=== PATIENT | female | born 1965 | race Caucasian/White ===

== ENCOUNTER 2025-06-10 08:47 | Emergency (ER) | payer BC ==
[~2025-06-10] VITALS: Ht 162.6 cm; Wt 71.4 kg
[2025-06-10 08:58] VITALS: TEMP 98.2
[2025-06-10] MEDS: normal saline 1000ml 1,000 ML IV ONE (09:31)
[2025-06-10 09:42] LABS: MEAN PLATELET VOLUME 7.7 FL (7.4-10.4); RED CELL DISTRIBUTION WIDTH 13.3 % (11.5-14.5)
[2025-06-10 09:59] LABS: CREATININE 0.95 MG/DL (0.40-0.90); TOTAL CARBON DIOXIDE 20.4 MMOL/L (24-32); eCRCL 54 ML/MIN; eGFR 60 ML/MIN
--- NOTE | 2025-06-10 10:09 | Physician Documentation ---
History of Present Illness ~ Chief Complaint: Overdose Stated Complaint: VOMITING Time Seen by MD: 09:10 Mode of Arrival: POV HPI 59-year-old female who presents with nausea, vomiting, abdominal cramping The patient has been on semaglutide medication previously, but ran out. On , she took 2.5 mg of Wegovy from a friend. Immediately following this, she developed abdominal cramping, nausea and vomiting. She has had severe cramping and nausea since that time. She has not really been able to keep down much food or fluids. She tried Pepto-Bismol with minimal relief. She denies any fevers. No abdominal pain. She has been constipated but no diarrhea. She feels dehydrated. Medication Reconciliation Allergies: Coded Allergies: No Known Allergies (Unverified , 06/10/25) Scheduled Promethazine Hcl (Promethegan), 25 MG RC Q6H PRN N/V Scheduled PRN ONDANSETRON ODT 4mg tablet (Ondansetron Odt), 1 TAB PO Q6H PRN PRN for nausea/vomiting Promethazine HCl (Promethazine HCl), 1 TAB PO Q6H PRN PRN for nausea/vomiting Review of Systems Constitutional: Denies: fever Gastrointestinal: Reports: nausea, vomiting, constipated; Denies: abdominal pain Physical Exam Vital Signs: Temperature: 98.2, Source: Oral, Heart Rate: 84, Respiratory Rate: 19, BP: 134/191, Pulse Oximetry: 100, Weight: 71.400 Oxygen Flow Rate: 2.0 Physical Exam General: This is an anxious appearing middle-aged woman, friend at bedside HEENT: Atraumatic, oropharynx is dry with cracked lips Heart: Regular rate and rhythm, normal-appearing peripheral perfusion Lungs: normal work of breathing, normal oxygen saturation on room air Abdomen: Soft, nondistended, no focal tenderness, no rebound or guarding Neuro: Alert and oriented Psychiatric: Initially anxious and in mild distress, but then later calms and is quite pleasant and cooperative Progress Results/Orders Results/Orders Orders - SHAINA BROWN MD CMP (06/10/25 09:10) Lipase (06/10/25 09:10) Magnesium Sulf-Water 2g/50ml (Magnesium (06/10/25 10:10) Potassium Cl 10meq/100ml Bag (Potassium (06/10/25 10:15) MG (06/10/25 09:33) Completed Orders - SHAINA BROWN MD Cbc/Diff (06/10/25 09:10) Normal Saline 1000ml (0.9% Sodium Chlori (06/10/25 09:10) Prochlorperazine Inj (Compazine Inj) (06/10/25 09:10) Diphenhydramine Inj (Benadryl Inj.) (06/10/25 09:10) Potassium Cl 20meq/100ml Bag (Potassium (06/10/25 10:10) Medications Received in ER Medications (Trade) Dose Ordered Sig/Gennaro Route PRN Reason Start Time Stop Time Status Last Admin Dose Admin Sodium Chloride 1,000 ml @ 1,000 mls/hr ONCE ONCE IV 06/10/25 09:10 06/10/25 10:17 DC 06/10/25 09:31 1,000 MLS/HR (Compazine inj) 10 mg ONCE ONCE IV 06/10/25 09:10 06/10/25 09:11 DC 06/10/25 09:31 10 MG (Benadryl inj.) 12.5 mg ONCE ONCE IV 06/10/25 09:10 06/10/25 09:11 DC 06/10/25 09:31 12.5 MG Magnesium Sulfate 50 ml @ 25 mls/hr ONCE ONCE IV 06/10/25 10:10 06/10/25 12:09 06/10/25 10:38 25 MLS/HR Potassium Chloride 100 ml @ 100 mls/hr Q1H IV 06/10/25 10:15 06/10/25 12:14 06/10/25 10:34 100 MLS/HR Vital Signs 06/10/25 06/10/25 06/10/25 08:58 09:41 09:48 Temp 98.2 Pulse 110 84 Resp 24 19 B/P (MAP) 163/80 134/191 (172) Pulse Ox 99 100 O2 Flow Rate 0 2.0 Laboratory Tests Test 06/10/25 09:16 06/10/25 09:33 Glucometer 130 H White Blood Count 8.1 Red Blood Count 4.58 Hemoglobin 14.9 Hematocrit 42.9 Mean Corpuscular Volume 93.6 Mean Corpuscular Hemoglobin 32.5 H Mean Corpuscular Hemoglobin Concent 34.7 Red Cell Distribution Width 13.3 Platelet Count 455 H Mean Platelet Volume 7.7 Neutrophils (%) (Auto) 79.7 H Lymphocytes (%) (Auto) 11.6 L Monocytes (%) (Auto) 7.8 Eosinophils (%) (Auto) 0.1 Basophils (%) (Auto) 0.8 Neutrophils # (Auto) 6.5 Lymphocytes # (Auto) 0.9 L Monocytes # (Auto) 0.6 Eosinophils # (Auto) 0.0 Basophils # (Auto) 0.1 CBC Comment Sodium Level 138 Potassium Level 2.6 *L Chloride Level 98 L Carbon Dioxide Level 20.4 L Anion Gap 20 H Blood Urea Nitrogen 11 Creatinine 0.95 H Estimated GFR/1.73 m2 60 BUN/Creatinine Ratio 11.6 Glucose Level 117 H Calcium Level 10.6 H Total Bilirubin 1.1 H Aspartate Amino Transf (AST/SGOT) 15 Alanine Aminotransferase (ALT/SGPT) 16 Alkaline Phosphatase 66 Total Protein 7.9 Albumin 4.4 Globulin 3.5 Albumin/Globulin Ratio 1.3 Lipase 37 Chemistry Comments Re-Evaluation Re-Evaluation : Re-Evaluation Time: 11:10 Re-Evaluation: Improved Progress The patient states she is feeling 90% better, thinks that she can drink some water now. I explained the results of all of her testing. She is hopeful to go home with nausea medicine. Medical Decision Making Differential Dx:Considerations: Include: Drug Overdose-Accidental Additional Comment Differential includes dehydration, electrolyte derangement Assessment The patient presents with nausea and vomiting and abdominal cramping immediately after taking a medication. She has no abdominal tenderness or fever. She does appear clinically dehydrated. She was given nausea medications and IV fluids. Labs returned with significant hypokalemia. She was given magnesium and potassium IV supplementation. Following treatment, she was feeling much improved. She tolerated oral hydration. She was given oral potassium as well. She will be discharged with nausea medications and home care instructions including a bland diet. Return precautions given. Departure Disposition: 01 HOME / SELF CARE / HOMELESS Impression: Primary Impression: Hypokalemia Additional Impressions: Nausea and vomiting Abdominal cramping Medication reaction Condition: Improved Discharge Instructions: Hypokalemia Referrals: NO PRIMARY CARE PROVIDER (PCP) Prescriptions Promethazine Hcl (Promethegan) 25 Mg Supp.rect 25 MG RC Q6H PRN N/V for nausea for 14 Days, #10 SUPP Prov: SHAINA BORWN MD 06/10/25 Promethazine HCl (Promethazine HCl) 25 Mg Tablet 1 TAB PO Q6H PRN PRN for nausea/vomiting for 14 Days, #28 TAB Prov: SHAINA BROWN MD 06/10/25 ONDANSETRON ODT 4mg tablet (ONDANSETRON ODT) 4 Mg Tab.rapdis 1 TAB PO Q6H PRN PRN for nausea/vomiting for 10 Days, #20 TAB 1 Refill Prov: SHAINA BROWN MD 06/10/25 Education Educated: Patient, Other Educated regarding: diagnosis, treatment, need for follow up Signature Scribe Signature: marina Attestation: SHAINA Kenae MD Jun 10, 2025 10:09
[2025-06-10] MEDS ORDERED: potassium Cl 20mEq/100mL bag 100 ML IV SCH (10:10)
[2025-06-10] MEDS: potassium CL 10mEq/100ml bag 100 ML IV SCH (10:34)
[2025-06-10] MEDS: magnesium sulf-water 2g/50mL 50 ML IV ONE (10:38)
[2025-06-10] MEDS ORDERED: ONDA-243 PO (11:13)
[2025-06-10] MEDS ORDERED: PROM25TA14 PO (11:13)
[2025-06-10] MEDS ORDERED: PROM25SU9 RC (11:13)
[2025-06-10] MEDS: POTASSIUM BICARB 20meq eff tab 20 MEQ TABLET.EFF PO ONE (11:48)
[2025-06-10 12:24] VITALS: BP 153/94; PULSE 83; RESP 16; O2SAT 99
== END 2025-06-10 12:27 | disposition home or self-care (01) ==
LOC: ER 08:48
DX: T50.995A Adverse effect of other drugs, medicaments and biological substances, initial encounter (principal); E87.6 Hypokalemia; R10.9 Unspecified abdominal pain; Z79.899 Other long term (current) drug therapy; Y92.89 Other specified places as the place of occurrence of the external cause
CPT/HCPCS: 36415; 80053; 82948; 83690; 83735; 85025; 96361; 96365; 96366; 96368; 96375; 99284; J0780; J1200; J3480; J7030; J7040; A4615